=== PATIENT | male | born 1975 | race Caucasian/White ===

== ENCOUNTER 2017-09-02 16:59 | Inpatient (IN) | payer SELFPAY ==
[~2017-09-02] VITALS: Ht 180.3 cm; Wt 67.7 kg
--- NOTE | 2017-09-02 17:20 | PHYS DOC ---
Past History Past Medical History: No Pertinent History, Abscess, Other Past Surgical History: No Surgical History Smoking: Cigarettes Alcohol Use: None Drug Use: None Adult General Chief Complaint Chief Complaint: FACE PROBLEM HPI HPI Patient is a 42 year old male who presents with lip swelling and side of face swelling the last 3 days. He states he noticed a small pimple on his lip and over the last 3 days become more swollen. He denies any fevers chills, changes in voice or troubles swallowing or breathing. States is hard to eat secondary to lip swelling. He also complains of area on the right side in front and superior to his right ear that's also painful. He states that started the same time as his other one did. He states he's had a infection has neck and he had to be admitted the hospital for IV antibiotics since he cannot afford oral antibiotics. He is homeless. Review of Systems Review of Systems Constitutional: Denies fever or chills [] Eyes: Denies change in visual acuity, redness, or eye pain [] HENT: Denies nasal congestion or sore throat [] Respiratory: Denies cough or shortness of breath [] Cardiovascular: No additional information not addressed in HPI [] GI: Denies abdominal pain, nausea, vomiting, bloody stools or diarrhea [] : Denies dysuria or hematuria [] Musculoskeletal: Denies back pain or joint pain [] Integument: Positive for skin rash and erythema Neurologic: Denies headache, focal weakness or sensory changes [] Endocrine: Denies polyuria or polydipsia [] All other systems were reviewed and found to be within normal limits, except as documented in this note. Allergies Allergies Allergies Coded Allergies Type Severity Reaction Last Updated Verified No Known Drug Allergies 09/02/17 No Physical Exam Physical Exam Constitutional: Well developed, well nourished, no acute distress, non-toxic appearance. [] HENT: Normocephalic, atraumatic, bilateral external ears normal, oropharynx moist, no oral exudates, nose normal. [] Eyes: PERRLA, EOMI, conjunctiva normal, no discharge. [] Neck: Normal range of motion, no tenderness, supple, no stridor. [] Cardiovascular:Heart rate regular rhythm, no murmur [] Lungs & Thorax: Bilateral breath sounds clear to auscultation [] Abdomen: Bowel sounds normal, soft, no tenderness, no masses, no pulsatile masses. [] Skin: Warm, dry, swelling of the left lower lip with erythema and a purulent pustule noted, fluctuance noted on the right anterior superior scalp above the ear with mild erythema surrounding it Back: No tenderness, no CVA tenderness. [] Extremities: No tenderness, no cyanosis, no clubbing, ROM intact, no edema. [] Neurologic: Alert and oriented X 3, normal motor function, normal sensory function, no focal deficits noted. [] Psychologic: Affect normal, judgement normal, mood normal. [] EKG EKG [] Radiology/Procedures Radiology/Procedures [] Impressions: Facial cellulitis Course & Med Decision Making Course & Med Decision Making Pertinent Labs and Imaging studies reviewed. (See chart for details) She presents with cellulitis of his lower lip and side of his face. CT face is pending at this time. I've ordered blood cultures, basic labs and started on Zosyn and vancomycin. Final disposition to Dr. Schwarz. Signout has been obtained from Dr. Mark at 6 PM. Plan as outlined by Dr. Mark was to evaluate the CT scan and CT scan did not show any significant facial abscess of the patient is to be admitted for IV antibiotics. Patient's CT scan report has been reviewed and there is no evidence of abscess. The case has been discussed with the hospitalist, Dr. Costa, and he is agreed to assist with further inpatient care of this patient. Dragon Disclaimer Dragon Disclaimer This electronic medical record was generated, in whole or in part, using a voice recognition dictation system. Departure Departure: Impression: Primary Impression: Facial cellulitis Disposition: ADMITTED INPATIENT Admitting Physician: Juan Costa Condition: IMPROVED Referrals: BIBI ROCK DO (PCP) YOUNG ROSADO MD Sep 02, 2017 17:20 PA LANGE MD Sep 02, 2017 18:38
[2017-09-02] MEDS ORDERED: IOHEXOL 300 MG/ML 75 ML VIAL. IV ONE (17:30)
[2017-09-02] MEDS ORDERED: PIP/TAZO PER PHARMACY MC PRN (17:30)
[2017-09-02] MEDS ORDERED: PIPERACILLIN/TAZOBACTAM 3.375 GM in IV NORMAL SALINE 50ML 50 ML IV ONE (17:30)
[2017-09-02] MEDS ORDERED: IV NORMAL SALINE 50ML 50 ML ONE (17:43)
[2017-09-02] MEDS ORDERED: IV NORMAL SALINE 500ML 500 ML ONE (17:43)
[2017-09-02] MEDS ORDERED: PIPERACILLIN/TAZOBACTAM 3.375 GM VIAL IV ONE (17:44)
[2017-09-02] MEDS ORDERED: VANCOMYCIN 1 GM VIAL. ONE ×2 (17:44→18:45)
[2017-09-02] MEDS ORDERED: VANCOMYCIN 1.5 GM in IV NORMAL SALINE 500ML 500 ML IV ONE (17:45)
[2017-09-02 17:51] LABS: BASO # 0.1 x10^3/uL (0.0-0.2); BASO % 1 % (0-3); EOS # 0.1 x10^3/uL (0.0-0.7); EOS % 1 % (0-3); HEMATOCRIT 35.9 % (39.0-53.0); LYMPH # 2.3 x10^3/uL (1.0-4.8); LYMPH % 25 % (24-48); MEAN CORPUSCULAR HEMOGLOBIN 27 pg (25-35); MEAN CORPUSCULAR HGB CONC 33 g/dL (31-37); MEAN CORPUSCULAR VOLUME 80 fL (79-100); MONO # 0.7 x10^3/uL (0.0-1.1); MONO % 7 % (0-9); NEUT % 66 % (31-73); PLATELET COUNT 319 x10^3/uL (140-400); RED BLOOD COUNT 4.49 x10^6/uL (4.30-5.70); RED CELL DISTRIBUTION WIDTH 17.4 % (11.5-14.5); WHITE BLOOD COUNT 9.1 x10^3/uL (4.0-11.0)
[2017-09-02 17:55] LABS: CALCIUM 8.7 mg/dL (8.5-10.1); CREATININE 0.7 mg/dL (0.7-1.3); GFR 124.3
--- NOTE | 2017-09-02 18:22 | RAD ---
CT maxillofacial with contrast: Reason for examination: Facial swelling for 2 days. Possible infection. Helical images were obtained through the maxillofacial structures with intravenous administration of 75 cc Omnipaque 300. Reconstruction was performed in sagittal and coronal planes. Exposure: One or more of the following individualized dose reduction techniques were utilized for this examination: 1. Automated exposure control 2. Adjustment of the mA and/or kV according to patient size 3. Use of iterative reconstruction technique. The paranasal sinuses are clear. No mucosal thickening, fluid levels or polyps are seen. The dacosta of the sinuses appear to be intact. Nasal septum is midline. There is bilateral lexi bullosa of the middle turbinates. The nasal turbinates are symmetric. No abnormalities are seen at the orbits. Lacrimal glands appear symmetric. Ocular muscles and optic nerves bilaterally show no focal abnormalities. The masseter and pterygoid muscles are symmetric without focal lesions. The parotid glands appear to be symmetric. Submandibular glands are symmetric. Sternocleidomastoid muscles are symmetric. Vascular structures are patent. There are noted to be some small lymph nodes in the right carotid region and submandibular region. There is soft tissue swelling over the maxillary, mandible and zygomatic arch region on the right. There is no evidence of abscess. IMPRESSION: Soft tissue swollen over the right mandible and zygomatic arch region with no evidence of abscess. Small lymph nodes are evident in the right submandibular and carotid region. Electronically signed by: Shell Rowe MD (09/02/2017 6:19 PM) [facility]
[2017-09-02] MEDS ORDERED: ACETAMINOPHEN 325 MG TABLET PO PRN (18:45)
[2017-09-02] MEDS ORDERED: MORPHINE SULFATE 4 MG/ML DISP.SYRIN. IV PRN (18:45)
[2017-09-02] MEDS ORDERED: ONDANSETRON PF 4 MG/2 ML VIAL. IV PRN (18:45)
[2017-09-02 19:27] LABS: SEDIMENTATION RATE 32 (0-15)
[2017-09-02] MEDS ORDERED: DIVA500T4 PO (20:22)
[2017-09-02] MEDS ORDERED: OLAN10TA3 PO (20:23)
[2017-09-02] MEDS ORDERED: QUET25TA5 PO (20:24)
[2017-09-02] MEDS ORDERED: CARI350T PO (20:24)
[2017-09-02] MEDS ORDERED: LOSA50TA6 PO (20:25)
[2017-09-02] MEDS ORDERED: OXYM10TA28 PO (20:25)
[2017-09-02] MEDS ORDERED: INDO25CA PO (20:27)
[2017-09-02] MEDS ORDERED: ESOM20CA PO (20:27)
[2017-09-02] MEDS ORDERED: INDOMETHACIN 25 MG CAPSULE PO PRN (20:45)
[2017-09-02] MEDS: VANCOMYCIN PER PHARMACY MC PRN (20:48)
[2017-09-02] MEDS: DIVALPROEX ER 500 MG TAB.ER.24H PO SCH (21:06)
[2017-09-02] MEDS: OLANZapine 10 MG TABLET PO SCH (21:06)
[2017-09-02] MEDS: QUEtiapine 25 MG TABLET. PO SCH (21:06)
[2017-09-02] MEDS: HYDROmorphone 2 MG TABLET PO PRN (21:07)
[2017-09-02] MEDS: CARISOPRODOL 350 MG TABLET PO SCH (21:07)
[2017-09-02 23:01] VITALS: BP 142/68
[2017-09-03] MEDS: HYDROmorphone 2 MG TABLET PO PRN ×5 (01:11→23:12)
[2017-09-03] MEDS: VANCOMYCIN 1 GM in IV NORMAL SALINE 250ML 250 ML IV SCH ×3 (01:11→18:30)
[2017-09-03] MEDS ORDERED: IBUPROFEN 800 MG TABLET. PO PRN (01:45)
[2017-09-03 05:10] VITALS: BP 136/77
[2017-09-03] MEDS: methylPREDNISolone SOD SUCC PF 40 MG/ML VIAL. IV SCH ×3 (05:54→21:26)
[2017-09-03] MEDS: PIPERACILLIN/TAZOBACTAM 3.375 GM in IV NORMAL SALINE 50ML 50 ML IV SCH ×3 (05:54→21:27)
[2017-09-03 06:56] LABS: ALBUMIN 2.9 g/dL (3.4-5.0); ALBUMIN/GLOBULIN RATIO 0.7 (1.0-1.7); CALCIUM 8.7 mg/dL (8.5-10.1); CREATININE 0.7 mg/dL (0.7-1.3); GFR 124.3; TOTAL BILIRUBIN 0.3 mg/dL (0.2-1.0); TOTAL PROTEIN 7.2 g/dL (6.4-8.2)
[2017-09-03] MEDS: LOSARTAN 50 MG TABLET. PO SCH (08:27)
[2017-09-03] MEDS: CARISOPRODOL 350 MG TABLET PO SCH ×2 (08:27→21:15)
[2017-09-03] MEDS: QUEtiapine 25 MG TABLET. PO SCH ×2 (08:27→21:15)
[2017-09-03] MEDS: PANTOPRAZOLE 40 MG TABLET. PO SCH (08:27)
[2017-09-03 10:34] VITALS: BP 134/81
[2017-09-03 14:57] VITALS: BP 130/72
[2017-09-03] MEDS: MORPHINE SULFATE 4 MG/ML DISP.SYRIN. IV PRN ×2 (16:26→21:27)
--- NOTE | 2017-09-03 16:36 | HP ---
ADMIT DATE: 09/03/2017 HISTORY OF PRESENT ILLNESS: The patient is a 42-year-old male patient who came to the Emergency Room complaining of lip swelling and right side of his face that has been going on for the last 3 days. He noted a small pimple on his right lip over the last three days and became more swollen. He denied any chills or fever, change in voice or trouble swallowing or breathing. He stated that it is hard for him to eat secondary to lip swelling. First complained of area on the right side in front and severe to his right ear. Also, is painful he says that it started at the same time. He that he has similar infection before in his neck and has to be admitted to the hospital for IV antibiotics. PAST MEDICAL HISTORY: Significant for hypertension, bipolar disorder and degenerative disk disease. PAST SURGICAL HISTORY: Significant for left orbital fracture status post reconstruction. He has actually diplopia when he looks down. ALLERGIES: He has no known drug allergies. MEDICATIONS: He is currently on following medications: He is on Soma 350 mg twice a day; losartan potassium 50 mg once a day; indomethacin 25 mg as needed; oxymorphone for Opana 10 mg 4 times a day; divalproex sodium 500 mg tablet, he takes 2 tablets at bedtime; olanzapine 10 mg at bedtime; Seroquel 25 mg twice a day; and Nexium 20 mg once a day. FAMILY HISTORY: He has 1 brother. His father at age of 52 and mother at age of 66 because of end-stage renal disease. SOCIAL HISTORY: He is , has 1 son. He smokes 1-2 packs a day, does not drink alcohol. He does not use any street drugs. Apparently, he gets his medication from Dr. Dobbins. He currently lives in a homeless longterm. REVIEW OF SYSTEMS: The patient denied any blurring of vision, but does complain of diplopia, especially when he looks down and out as he has orbital fracture. Denied any glaucoma or macular degeneration. He does have bilateral sensorineural deafness. Denied any nosebleeds, stuffy nose or postnasal drip. Denied any sore throat, sore tongue, toothache or difficulty swallowing. Denied any PHYSICAL EXAMINATION: GENERAL: On examining him or arrival to the Emergency Room, he looked pale, cachectic, but no jaundice, cyanosis, or thyromegaly. No jugular venous distension. No limb edema. VITAL SIGNS: Hid heart rate was 68, blood pressure was 142/68, temperature was 97.8, respiratory rate was 20, and oxygen saturation was 97%. HEAD, EYES, EARS, NOSE AND THROAT: Normocephalic. He got marked swelling of his right side of the lip and right side of the face. NECK: Supple with no lymphadenopathy, no thyromegaly. No jugular venous distension. No audible bruit. HEART: Showed normal first and second heart sounds with no gallop, rub or murmur. CHEST: Clear to auscultation. No crepitation or rhonchi. ABDOMEN: Distended, soft, nontender. No guarding or rigidity. No organomegaly. Hernial orifice intact. Bowel sounds normal. NEUROLOGIC: He was awake, alert, oriented to time, place and person. All cranial nerves intact except that he complains of diplopia when he looks down to the left side. He moves extremities without difficulty. He ambulates without assistance or assistive devices. LABORATORY DATA: His lab work on admission showed a white cell count of 9000, hemoglobin 12, hematocrit 36, MCV 80 and platelet count of 319,000. His serum sodium was 136, potassium 4, chloride 99, bicarbonate 28, anion gap of 9, BUN 11, creatinine 0.7, estimated GFR was 124 mL per minute. His glucose 115,lactic acid 1.4, calcium was 8.7. Total bilirubin, AST, ALT, alkaline phosphatase were normal. Total protein was 7.2, albumin was 2.9. IMPRESSION: In summary, the patient was admitted with left-sided . He apparently had a CT scan of the face, which basically showed that the paranasal sinuses are clear. No mucosal thickening or fluid levels or polyps were seen. The dacosta of the sinuses appeared to be intact. Nasal septum is midline. There is bilateral lexi bullosa of the middle turbinate. The nasal turbinates are symmetrical. No abnormalities are seen on the orbits. Lacrimal glands appear symmetric. Ocular muscles and optic nerves bilaterally showed no focal abnormalities. The masseter and pterygoid muscles are symmetric without focal lesion. The parotid glands appear to be symmetric. Submandibular glands are symmetric. Sternocleidomastoid muscles are symmetric. Vascular structures are patent. There are noted to be some small lymph nodes in the right carotid region and submandibular region. There is soft tissue swelling over the maxillary mandible and zygomatic arch. There is no evidence of abscess. Basically, the patient was admitted with left-sided facial cellulitis that started in the right side of his lower lip involving the right-sided cheek around his right eye. PLAN: To continue with IV antibiotic in the form of vancomycin and Zosyn, continue with IV steroids, ibuprofen and pain management and we will decide on further management accordingly. ALPESH BUNCH MD DR: ATUL/lalo JOB#: [id number] / [id number]
[2017-09-03 18:09] LABS: VANC TR 11.6 mcg/mL (10.0-20.0)
[2017-09-03] MEDS: LACTOBACILLUS RHAMNOSUS GG 1 CAPSULE. PO SCH (21:14)
[2017-09-03] MEDS: DIVALPROEX ER 500 MG TAB.ER.24H PO SCH (21:15)
[2017-09-03] MEDS: OLANZapine 10 MG TABLET PO SCH (21:15)
[2017-09-03 22:41] VITALS: BP 145/74
--- NOTE | 2017-09-03 23:06 | PN ---
DATE: 09/03/2017 SUBJECTIVE: The patient is resting, sitting on the edge of the bed comfortably in no apparent distress. Continued to complain of pain and swelling to his right face and right upper lip, although the patient is afebrile and white cell count is normal. His CT scan showed only diffuse soft tissue swelling without any definite abscess. There is no drainable fluid. PHYSICAL EXAMINATION: GENERAL: When I examined him this afternoon, he looked pale, cachectic. No jaundice, cyanosis, or thyromegaly. No jugular venous distension. No limb edema. VITAL SIGNS: Her heart rate was 62, blood pressure 130/72, temperature was 97.7, respiratory rate was 20, and oxygen saturation was 98%. HEAD, EYES, EARS, NOSE AND THROAT: Normocephalic, atraumatic. He definitely has a swelling of his right side of the lower lips, also right cheek, around his right eye. There is no redness. There is no tenderness or fluctuation. NECK: Supple. HEART: Showed normal first and second heart sounds with no gallop, rub or murmur. CHEST: Clear to auscultation. No crepitation or rhonchi. ABDOMEN: Distended, soft, nontender. No guarding or rigidity. No organomegaly. All hernial orifices intact. Bowel sounds normal. NEUROLOGIC: He is awake, alert, responding appropriately. All cranial nerves are intact. He moves extremities without difficulty. He ambulates without assistance or assistive devices. LABORATORY DATA: He has no lab work done today except his chemistry, which showed a serum sodium 136, potassium 4, chloride 99, bicarbonate 28, anion gap of 9, BUN 11, creatinine 0.7, estimated GFR was 124 mL per minute, his glucose 115, calcium was 8.7. Total bilirubin, AST, ALT, alkaline phosphatase were normal. ASSESSMENT: Left-sided facial cellulitis. PLAN: To continue with IV antibiotic. Continue with pain management. Increase his morphine to 4 mg every 4 hours. We will repeat his lab work tomorrow and decide further management accordingly. ALPESH BUNCH MD DR: ATUL/lalo JOB#: [id number] / [id number]
[2017-09-04] MEDS: VANCOMYCIN 1 GM in IV NORMAL SALINE 250ML 250 ML IV SCH ×3 (02:01→18:25)
[2017-09-04] MEDS: MORPHINE SULFATE 4 MG/ML DISP.SYRIN. IV PRN ×2 (02:12→05:35)
[2017-09-04] MEDS: HYDROmorphone 2 MG TABLET PO PRN ×4 (03:17→22:32)
[2017-09-04] MEDS: methylPREDNISolone SOD SUCC PF 40 MG/ML VIAL. IV SCH ×2 (05:35→14:04)
[2017-09-04] MEDS: PIPERACILLIN/TAZOBACTAM 3.375 GM in IV NORMAL SALINE 50ML 50 ML IV SCH ×3 (05:35→22:29)
[2017-09-04 05:51] VITALS: BP 151/81
[2017-09-04 06:15] LABS: ALBUMIN 2.7 g/dL (3.4-5.0); ALBUMIN/GLOBULIN RATIO 0.6 (1.0-1.7); CALCIUM 9.3 mg/dL (8.5-10.1); CREATININE 0.7 mg/dL (0.7-1.3); GFR 124.3; TOTAL BILIRUBIN 0.2 mg/dL (0.2-1.0); TOTAL PROTEIN 7.2 g/dL (6.4-8.2)
[2017-09-04 06:17] LABS: HEMATOCRIT 35.4 % (39.0-53.0); HEMOGLOBIN 11.7 g/dL (13.0-17.5); RED BLOOD COUNT 4.37 x10^6/uL (4.30-5.70); RED CELL DISTRIBUTION WIDTH 17.3 % (11.5-14.5); WHITE BLOOD COUNT 10.1 x10^3/uL (4.0-11.0)
[2017-09-04] MEDS: NICOTINE 21MG PATCH. TD PRN (06:26)
[2017-09-04] MEDS ORDERED: oxyCODONE/APAP 10/325 1 TAB TABLET PO PRN (07:45)
[2017-09-04] MEDS: PANTOPRAZOLE 40 MG TABLET. PO SCH (08:37)
[2017-09-04] MEDS: QUEtiapine 25 MG TABLET. PO SCH ×2 (08:38→20:42)
[2017-09-04] MEDS: LOSARTAN 50 MG TABLET. PO SCH (08:38)
[2017-09-04] MEDS: CARISOPRODOL 350 MG TABLET PO SCH ×2 (08:38→20:43)
[2017-09-04] MEDS: LACTOBACILLUS RHAMNOSUS GG 1 CAPSULE. PO SCH ×2 (08:38→20:42)
[2017-09-04 11:00] VITALS: BP 131/85
[2017-09-04] MEDS: VANCOMYCIN PER PHARMACY MC PRN (12:58)
[2017-09-04 19:20] VITALS: BP 163/81
[2017-09-04] MEDS: DIVALPROEX ER 500 MG TAB.ER.24H PO SCH (20:42)
[2017-09-04] MEDS: DOCUSATE SODIUM 100 MG CAPSULE PO SCH (20:43)
[2017-09-04] MEDS: OLANZapine 10 MG TABLET PO SCH (20:43)
[2017-09-04 22:55] VITALS: BP 145/90
--- NOTE | 2017-09-04 22:55 | PN ---
DATE: 09/04/2017 SUBJECTIVE: The patient is sitting on edge of the bed, comfortably in no apparent distress. Definitely looks much better. Now he opens eyes. Swelling on the right side of his face and the lower lip is much less than before. He is afebrile and his white cell count is within normal range. So far, the cultures are negative. PHYSICAL EXAMINATION: GENERAL: When I examined him, he looked pale, but no jaundice, cyanosis, or thyromegaly. No jugular venous distention. No limb edema. VITAL SIGNS: His heart rate was 75, blood pressure was 131/85, temperature was 98, respiratory rate was 20, and oxygen saturation was 95%. HEAD, EYES, EARS, NOSE AND THROAT: Showed normocephalic, atraumatic. NECK: Supple. HEART: Showed normal first and second heart sounds. No gallop, rub or murmur. CHEST: Clear to auscultation. No crepitation or rhonchi. ABDOMEN: Distended, soft, nontender. No guarding or rigidity. No organomegaly. Hernial orifice intact. Bowel sounds normal. NEUROLOGIC: He was definitely awake, alert. All his cranial nerves are intact. He moves extremities without difficulty, ambulates without assistance or assistive devices. The swelling on the right side of the face, right eye and the lower limb has largely subsided and has not completely normalized yet. His intake over the last 24 hours was 3500, no output was recorded. LABORATORY DATA: His lab work this morning showed a white cell count of 10,000, hemoglobin 11.7, hematocrit 35, MCV 81 and platelet count 308,000. His chemistry showed a serum sodium of 140, potassium 4, chloride 104, bicarbonate 28, anion gap of 8, BUN 13, creatinine 0.7, estimated GFR was 124 mL per minute. His glucose was 157, calcium 9.3. Total bilirubin, AST, ALT, alkaline phosphatase were normal. Total protein was 7.2, albumin 2.7. ASSESSMENT: Right-sided facial cellulitis, improving. We will continue with the IV antibiotic. I will cut down his steroids and evaluate him tomorrow and if he is stable, we can discharge him on oral antibiotic. ALPESH BUNCH MD DR: ATUL/lalo JOB#: [id number] / [id number]
[2017-09-05] MEDS: methylPREDNISolone SOD SUCC PF 40 MG/ML VIAL. IV SCH ×2 (01:42→13:57)
[2017-09-05] MEDS: VANCOMYCIN 1 GM in IV NORMAL SALINE 250ML 250 ML IV SCH ×2 (01:45→10:59)
[2017-09-05] MEDS: PIPERACILLIN/TAZOBACTAM 3.375 GM in IV NORMAL SALINE 50ML 50 ML IV SCH ×2 (05:17→13:52)
[2017-09-05] MEDS: HYDROmorphone 2 MG TABLET PO PRN ×2 (05:18→13:53)
[2017-09-05 05:30] VITALS: BP 134/82
[2017-09-05 06:37] LABS: BASO % 0 % (0-3); EOS % 0 % (0-3); HEMATOCRIT 32.4 % (39.0-53.0); HEMOGLOBIN 10.7 g/dL (13.0-17.5); LYMPH # 1.8 x10^3/uL (1.0-4.8); LYMPH % 15 % (24-48); MEAN CORPUSCULAR HEMOGLOBIN 27 pg (25-35); MEAN CORPUSCULAR HGB CONC 33 g/dL (31-37); MEAN CORPUSCULAR VOLUME 81 fL (79-100); MONO # 0.4 x10^3/uL (0.0-1.1); MONO % 4 % (0-9); NEUT # 9.6 x10^3uL (1.8-7.7); NEUT % 81 % (31-73); PLATELET COUNT 322 x10^3/uL (140-400); RED BLOOD COUNT 4.01 x10^6/uL (4.30-5.70); RED CELL DISTRIBUTION WIDTH 17.5 % (11.5-14.5); WHITE BLOOD COUNT 11.8 x10^3/uL (4.0-11.0)
[2017-09-05 06:41] LABS: CALCIUM 8.5 mg/dL (8.5-10.1); GFR 82.3
[2017-09-05] MEDS: PANTOPRAZOLE 40 MG TABLET. PO SCH (08:14)
[2017-09-05] MEDS: NICOTINE 21MG PATCH. TD PRN (08:14)
[2017-09-05] MEDS: DOCUSATE SODIUM 100 MG CAPSULE PO SCH (08:15)
[2017-09-05] MEDS: LACTOBACILLUS RHAMNOSUS GG 1 CAPSULE. PO SCH (08:15)
[2017-09-05] MEDS: LOSARTAN 50 MG TABLET. PO SCH (08:15)
[2017-09-05] MEDS: CARISOPRODOL 350 MG TABLET PO SCH (08:15)
[2017-09-05] MEDS: QUEtiapine 25 MG TABLET. PO SCH (08:19)
[2017-09-05 10:22] VITALS: BP 142/81
[2017-09-05] MEDS ORDERED: CEPH-264 PO (13:53)
--- NOTE | 2017-09-05 14:35 | DS ---
DATE OF DISCHARGE: 09/05/2017 HOSPITAL COURSE: The patient is a 42-year-old male patient who was admitted with cellulitis of the right lower lip and right side of the face. On arrival, he has also periorbital swelling. His eyes were closed. We did start him on IV vancomycin and Zosyn and he did very well. All the swelling on the right side subsided including the swollen lip with a small area of scabbing. His eyes opened completely. He remained afebrile throughout his stay with normal white cell count. PHYSICAL EXAMINATION: GENERAL: When I examined him, he looked pale, but no jaundice, cyanosis, or thyromegaly. No jugular venous distention. No limb edema. VITAL SIGNS: His heart rate was 60, blood pressure was 142/81, temperature was 97.7, respiratory rate 20, and oxygen saturation was 97%. HEAD, EYES, EARS, NOSE, AND THROAT: Showed normocephalic, atraumatic. NECK: Supple. HEART: Showed normal first and second heart sounds. No gallop, rub, or murmur. CHEST: Clear to auscultation. No crepitation or rhonchi. ABDOMEN: Distended, soft, nontender. NEUROLOGIC: He is awake, alert, responding appropriately. All his cranial nerves intact. He moves extremities without difficulty. He ambulates without assistance or assistive devices. LABORATORY DATA: His lab work this morning showed his white cell count to be 11,800, hemoglobin 11, hematocrit 32, MCV 81, platelet count of 322,000. His chemistry showed a serum sodium of 142, potassium 4, chloride of 104, bicarbonate 28, anion gap of 10, BUN 16, creatinine 1, estimated GFR was 82 mL per minute. Her glucose 118 and calcium was 8.5. DISCHARGE MEDICATIONS: He will be discharged home to continue on Keflex 500 mg 3 times a day, Soma 350 mg twice a day, divalproex sodium for Depakote extended release 500-1000 mg at bedtime, Nexium 40 mg at bedtime, indomethacin 25 mg as needed, losartan potassium 50 mg daily, olanzapine for Zyprexa 10 mg at bedtime, oxymorphone for Opana 10 mg 4 times a day, quetiapine fumarate, Seroquel 25 mg twice a day. FINAL DISCHARGE DIAGNOSES: Right-sided facial cellulitis, resolved; gastroesophageal reflux disease; and hypertension. ALPESH BUNCH MD DR: ATUL/lalo JOB#: [id number] / [id number]
[2017-09-05 14:45] VITALS: BP 142/79
== END 2017-09-05 17:32 | disposition home or self-care (01) | DRG 603 ==
LOC: ER 16:59 → 1 SOUTH 19:16
PROVIDERS: ADMIT Internal Medicine; ATTEND Internal Medicine
DX: L03.211 Cellulitis of face (principal); F17.200 Nicotine dependence, unspecified, uncomplicated; F31.9 Bipolar disorder, unspecified; I10 Essential (primary) hypertension; K21.9 Gastro-esophageal reflux disease without esophagitis; H53.2 Diplopia; J34.89 Other specified disorders of nose and nasal sinuses; Z59.0 Homelessness; Z87.81 Personal history of (healed) traumatic fracture
CPT/HCPCS: 36415; 70487; 80048; 80053; 80202; 83605; 85025; 85027; 85651; 87040; 96365; 96368; 99406; J2270; J2543; J2920; J3370; J7040; J7050; 99285-25

== ENCOUNTER 2017-11-22 08:38 | Emergency (ER) | payer SELFPAY ==
[~2017-11-22] VITALS: Ht 180.3 cm; Wt 64.1 kg
[~2017-11-22 08:38] MED LIST: CARI350T PO; CEPH-264 PO; DIVA500T4 PO; ESOM20CA PO; INDO25CA5 PO; LOSA50TA6 PO; OLAN10TA3 PO; OXYM10TA28 PO; QUET25TA5 PO
--- NOTE | 2017-11-22 09:06 | PHYS DOC ---
Past History Past Medical History: Arthritis, Hypertension Past Surgical History: No Surgical History Alcohol Use: None Drug Use: None Adult General Chief Complaint Chief Complaint: BACK PAIN OR INJURY [facility] HPI 42-year-old male presents with 2 day history of right lower back pain and buttocks pain. The patient denies any trauma or overuse. The pain is a "burning sensation". He has intermittent pain that shoots down the lateral leg to the knee. There seems to be no specific pattern to this. The patient is not tender to palpation. States the pain is worse with coughing. It has been difficult to get comfortable when he lays down. He has a history of kidney stones in the past. He admits to recent dark urine, no obvious blood. He has been drinking a lot of fluids to stay hydrated. He denies urinary frequency or dysuria. Review of Systems Review of Systems Constitutional: Denies fever or chills [] Eyes: Denies change in visual acuity, redness, or eye pain [] HENT: Denies nasal congestion or sore throat [] Respiratory: Denies cough or shortness of breath [] Cardiovascular: No additional information not addressed in HPI [] GI: Denies abdominal pain, nausea, vomiting, bloody stools or diarrhea [] : Denies dysuria or hematuria [] Musculoskeletal: Right-sided low back pain[] Integument: Denies rash or skin lesions [] Neurologic: Denies headache, focal weakness or sensory changes [] Endocrine: Denies polyuria or polydipsia [] All other systems were reviewed and found to be within normal limits, except as documented in this note. Current Medications Current Medications Current Medications Medications (Trade) Dose Ordered Sig/[facility] Start Time Stop Time Status Last Admin Dose Admin Ketorolac Tromethamine (Toradol) 60 mg 1X ONCE 11/22/17 09:00 11/22/17 09:01 UNV Allergies Allergies Allergies Coded Allergies Type Severity Reaction Last Updated Verified No Known Drug Allergies 09/02/17 No Physical Exam Physical Exam Constitutional: Well developed, well nourished, no acute distress, non-toxic appearance. [] HENT: Normocephalic, atraumatic, bilateral external ears normal, oropharynx moist, no oral exudates, nose normal. [] Eyes: PERRLA, EOMI, conjunctiva normal, no discharge. [] Neck: Normal range of motion, no tenderness, supple, no stridor. [] Cardiovascular:Heart rate regular rhythm, no murmur [] Lungs & Thorax: Bilateral breath sounds clear to auscultation [] Abdomen: Bowel sounds normal, soft, no tenderness, no masses, no pulsatile masses. [] Skin: Warm, dry, no erythema, no rash. [] Back: No tenderness to palpation of lumbar spine and paraspinal muscles, no pain with palpation of buttocks. Mild CVA tenderness on right. [] Extremities: No tenderness, no cyanosis, no clubbing, ROM intact, no edema. [] Neurologic: Alert and oriented X 3, normal motor function, normal sensory function, no focal deficits noted. [] Psychologic: Affect normal, judgement normal, mood normal. [] Current Patient Data Vital Signs Vital Signs Date Time Temp Pulse Resp B/P (MAP) Pulse Ox O2 Delivery O2 Flow Rate FiO2 11/22/17 08:38 97.6 73 16 97 Room Air EKG EKG [] Radiology/Procedures Radiology/Procedures [] Course & Med Decision Making Course & Med Decision Making Pertinent Labs and Imaging studies reviewed. (See chart for details) The patient's urinalysis is negative for blood. I do not believe a CT scan is necessary. Pain sounds musculoskeletal with radiculopathy so I will treat him with 5 days of prednisone as well as Flexeril. At discharge, the patient told me that she used to be on Soma but has been out of them for a month. He states these worked better than Flexeril. I told him that I am unable to prescribe this medication as it is controlled and he has a prescriber. I advised that he return to the prescriber for a new prescription. [] Dragon Disclaimer Dragon Disclaimer This electronic medical record was generated, in whole or in part, using a voice recognition dictation system. Departure Departure: Referrals: BIBI ROCK DO (PCP) Scripts Cyclobenzaprine Hcl (CYCLOBENZAPRINE HCL) 10 Mg Tablet 1 TAB PO TID PRN for MUSCLE SPASMS, #30 TAB Prov: DUNIA PIKE DO 11/22/17 Prednisone (PREDNISONE) 50 Mg Tablet 1 TAB PO DAILY, #5 TAB Prov: DUNIA PIKE DO 11/22/17 DUNIA PIKE DO Nov 22, 2017 09:06
[2017-11-22] MEDS ORDERED: KETOROLAC 60 MG/2 ML VIAL. IM ONE (09:30)
[2017-11-22 09:46] LABS: BACTERIA,URINE 0 /HPF (0-FEW); BILIRUBIN,URINE NEG (NEG); CLARITY,URINE CLEAR; COLOR,URINE AMBER; GLUCOSE,URINE NEG (NEG); NITRITE,URINE NEG (NEG); RBC,URINE 0 /HPF (0-2); SQUAMOUS EPITHELIAL CELL,UR OCC /LPF; UROBILINOGEN,URINE 0.2 mg/dL (0.2 mg/dL); WBC,URINE RARE /HPF (0-4)
[2017-11-22] MEDS ORDERED: PRED50TA PO (09:57)
[2017-11-22] MEDS ORDERED: CYCL-331 PO (09:57)
[2017-11-22 10:00] VITALS: BP 132/71
== END 2017-11-22 10:03 | disposition home or self-care (01) ==
LOC: ER 08:38
DX: M54.16 Radiculopathy, lumbar region (principal); M19.90 Unspecified osteoarthritis, unspecified site; I10 Essential (primary) hypertension
CPT/HCPCS: 81001; 96372; 99283; J1885